=== PATIENT | female | born 1995 | race Caucasian/White ===

== ENCOUNTER 2018-09-08 23:48 | Emergency (ER) | payer SELFPAY ==
[2018-09-09 00:02] VITALS: BP 116/63; PULSE 120; TEMP 99; BMI 29.2
--- NOTE | 2018-09-09 00:02 | PDOC ---
History of Present Illness - General Chief Complaint: Heat Exhaustion Stated Complaint: PAIN & FEVER Time Seen by Provider: 09/09/18 00:01 History Source: Patient Exam Limitations: No Limitations, Language Barrier - History of Present Illness Initial Comments: Samantha Arteaga is a 23 yo F w a pmh of childhood asthma who presents to the [facility] ER via private auto stating she feels really warm and burned after spending the day in the sun. [place] close to sunset. When she woke up this morning she was feeling well and had no complaints. After spending the day on the beach she feels really hot but is cold at the same time. She says she has a fever and chills. Her body feels warm but she is cold. Denies chest pain, SOB, difficulty breathing, runny nose, cough, nausea, vomiting, diarrhea, constipation, dysuria, frequency, or urgency PCP: None PSH: None reported Allergies: Shrimp Social Hx: Denies smoking, drinking, or other substance usage. Past History - Past Medical History Allergies/Adverse Reactions: Allergies Allergy/AdvReac Type Severity Reaction Status Date / Time No Known Allergies Allergy Verified 03/27/14 16:36 Home Medications: Ambulatory Orders Clotrimazole/Betamet Diprop [Lotrisone Cream] 1 tip TP BID #45 cream..g. Diphenhydramine HCl [Benadryl Capsule -] 25 mg PO Q8H #30 capsule 03/27/14 Ibuprofen [Motrin -] 600 mg PO TID #30 tablet 03/27/14 predniSONE [Deltasone -] 40 mg PO DAILY #8 tablet 03/27/14 - Suicide/Smoking/Psychosocial Hx Smoking Status: No Smoking History: Never smoked Have you smoked in the past 12 months: No Number of Cigarettes Smoked Daily: 0 Information on smoking cessation initiated: No Hx Alcohol Use: No Drug/Substance Use Hx: No Substance Use Type: None Review of Systems - Review of Systems Able to Perform ROS?: Yes Comments:: CONSTITUTIONAL: Present: fever, chills, generalized weakness, malaise Absent: diaphoresis, loss of appetite HEENT: Absent: rhinorrhea, nasal congestion, throat pain, throat swelling, difficulty swallowing, mouth swelling, ear pain, eye pain, visual Changes CARDIOVASCULAR: Absent: chest pain, syncope, palpitations, irregular heart rate, lightheadedness , peripheral edema RESPIRATORY: Absent: cough, shortness of breath, dyspnea with exertion, orthopnea, wheezing, stridor, hemoptysis GASTROINTESTINAL: Absent: abdominal pain, abdominal distension, nausea, vomiting, diarrhea, constipation, melena, hematochezia GENITOURINARY: Absent: dysuria, frequency, urgency, hesitancy, hematuria, flank pain, genital pain MUSCULOSKELETAL: Absent: myalgia, arthralgia, joint swelling SKIN: Absent: rash, itching, pallor HEMATOLOGIC/IMMUNOLOGIC: Absent: easy bleeding, easy bruising, lymphadenopathy, frequent infections ENDOCRINE: Absent: unexplained weight gain, unexplained weight loss, heat intolerance, cold intolerance NEUROLOGIC: Present: Headache Absent: focal weakness or paresthesias, dizziness, unsteady gait, seizure, mental status changes, bladder or bowel incontinence PSYCHIATRIC: Absent: anxiety, depression, suicidal or homicidal ideation, hallucinations. *Physical Exam - Vital Signs Last Vital Signs Temp Pulse Resp BP Pulse Ox 99.0 F 120 H 18 116/63 97 09/09/18 00:00 09/09/18 00:00 09/09/18 00:00 09/09/18 00:00 09/09/18 00:00 - Physical Exam Comments: GENERAL: Well developed, well nourished. Awake and alert. Mild distress. HEENT: Normocephalic, atraumatic. PERRLA, EOMI. No conjunctival pallor. Sclera are non- icteric. Moist mucous membranes. Oropharynx is clear. NECK: Supple. Full ROM. No JVD. CARDIOVASCULAR: Tachycardic rate. Regular rhythm. No murmurs, rubs, or gallops. Distal pulses are 2+ and symmetric. PULMONARY: No evidence of respiratory distress. Lungs clear to auscultation bilaterally. No wheezing, rales or rhonchi. ABDOMINAL: Soft. Non-tender. Non-distended. No rebound or guarding. No organomegaly. Normoactive bowel sounds. MUSCULOSKELETAL Normal range of motion at all joints. No bony deformities or tenderness. No CVA tenderness. EXTREMITIES: No cyanosis. No clubbing. No edema. No calf tenderness. SKIN: Hot, red and dry. Normal capillary refill. Heat rash - sunburn. No jaundice. NEUROLOGICAL: Alert, awake, appropriate. Cranial nerves 2-12 intact. No deficits to light touch in face, upper extremities and lower extremities. No motor deficits in the in face, upper extremities and lower extremities. Normal speech. Gait is normal without ataxia. PSYCHIATRIC: Cooperative. Good eye contact. Appropriate mood and affect. ED Treatment Course - LABORATORY CBC & Chemistry Diagram: 09/09/18 00:22 09/09/18 00:22 Medical Decision Making - Medical Decision Making Samantha Arteaga is a 23 yo F w a pmh of childhood asthma who presents to the [facility] ER via private auto stating she feels really warm and burned after spending the day in the sun. The patient [place] the [place] 10 [place] this [place] until close to sunset. When she woke up this morning she was feeling well and had no complaints. After spending the day on the beach she feels really hot but is cold at the same time. She says she has a fever and chills. Her body feels warm but she is cold. Vital Signs Temp Pulse Resp BP Pulse Ox 99.0 F 120 H 18 116/63 97 09/09/18 00:00 09/09/18 00:00 09/09/18 00:00 09/09/18 00:00 09/09/18 00:00 - Tachycardic DDx IBNLT: Heat exhaustion vs heat stroke, dehydration, electrolyte/metabolic disturbance, RADHA, rhabdo, Plan: labs, Urine, Ice pack, IV hydration, re-assess. Labs: No acute abnormalities Urine: Trace ketonuria Re-assessment: Patient feels better after Ice and IV hydration and requests to be discharged. - HR normalized to 87 after 2L iv hydration. Disposition: Home with PCP fu *DC/Admit/Observation/Transfer Diagnosis at time of Disposition: Dehydration Heat exhaustion Qualifiers: Encounter type: initial encounter Qualified Code(s): T67.5XXA - Heat exhaustion , unspecified, initial encounter - Discharge Dispostion Disposition: HOME Condition at time of disposition: Improved Decision to Admit order: No - Referrals Referrals: [facility] [place] [Provider Group] - Patient Instructions Printed Discharge Instructions: DI for Heat Exhaustion and Heat Stroke, DI for Dehydration -- Adult Additional Instructions: You came into the ER after you were dehydrated and experienced heat exhaustion. We looked at your blood and urine and found no abnormalities. We gave you IV hydration which made you feel better. Please do your best to stay indoors during these hot days and drink plenty of fluids. Please make sure to call up the primary care doctor we are referring you to and schedule an appointment in the next 3 to 5 days to make sure you are being taken care of and getting better. Come back to the ER immediately if your pain worsens, you get a fever, start vomiting, or have any other new or worsening concerns. Thank you for coming to the [place] ER. We hope you feel better soon~! Print Language: ARABIC - Post Discharge Activity
[2018-09-09] MEDS ORDERED: SODIUM CHLORIDE 0.9% 500 ML INFUS.BAG IV ONE (00:07)
[2018-09-09] MEDS ORDERED: LACTATED RINGERS SOLUTION 1000 ML INFUS.BAG IV ONE (00:08)
--- NOTE | 2018-09-09 00:40 | PDOC ---
Attending Attestation - Resident Resident Name: Cain Rush - ED Attending Attestation I have performed the following: I have examined & evaluated the patient, The case was reviewed & discussed with the resident, I agree w/resident's findings & plan, Exceptions are as noted - HPI HPI: 09/09/18 00:40 Reviewed Residents HPI - Physicial Exam PE: 09/09/18 00:40 Reviewed Residents PE - Medical Decision Making 09/09/18 00:41 She was outdoors all day long heat appendix greater than 100 today complaining now of subjective fever chills body aches Neck is supple no focal signs of infection on history review of symptoms are physical examination history and examination at this time is most consistent with heat exhaustion Given tachycardia we'll check labs, CK, hydrate, observe and reassess Dr. Phillips to follow up labs reasses and dispo patient
[2018-09-09 00:50] LABS: HEMOGLOBIN 14.1 GM/dL (10.7-15.3); MEAN CELL VOLUME 90.6 fl (80-96); MEAN PLT VOLUME 8.4 fl (7.5-11.1); RDW 13.1 % (11.6-15.6); WHITE BLOOD COUNT 7.4 K/mm3 (4.0-10.0)
[2018-09-09 00:57] LABS: BASO % 0.4 % (0-2.0); EOS % 4.1 % (0-4.5); HEMATOCRIT 41.9 % (32.4-45.2); LYMPH % 25.3 % (8-40); MCH 30.4 pg (25.7-33.7); MCHC 33.5 g/dl (32.0-36.0); MONO % 10.1 % (3.8-10.2); NEUT % 60.1 % (42.8-82.8); PLATELET COUNT 298 K/MM3 (134-434); RBC 4.63 M/mm3 (3.60-5.2)
[2018-09-09 01:19] LABS: ALBUMIN 3.8 g/dl (3.4-5.0); BILIRUBIN,TOTAL 0.4 mg/dL (0.2-1); BLOOD UREA NITROGEN 12.6 mg/dL (7-18); CALCIUM 8.7 mg/dL (8.5-10.1); CREATININE 0.6 mg/dL (0.55-1.3); POTASSIUM 3.9 mmol/L (3.5-5.1); TOT PROT 7.2 g/dl (6.4-8.2)
--- NOTE | 2018-09-09 01:21 | PDOC ---
*Physical Exam - Vital Signs Last Vital Signs Temp Pulse Resp BP Pulse Ox 99.0 F 120 H 18 116/63 97 09/09/18 00:00 09/09/18 00:00 09/09/18 00:00 09/09/18 00:00 09/09/18 00:00 ED Treatment Course - LABORATORY CBC & Chemistry Diagram: 09/09/18 00:22 09/09/18 00:22 - ADDITIONAL ORDERS Additional order review: Laboratory Results 09/09/18 09/09/18 00:22 00:22 Sodium 139 Potassium 3.9 Chloride 108 H Carbon Dioxide 25 Anion Gap 7 L BUN 12.6 Creatinine 0.6 Est GFR (CKD-EPI)AfAm 146.83 Est GFR (CKD-EPI)NonAf 126.68 Random Glucose 94 Calcium 8.7 Total Bilirubin 0.4 AST 26 ALT 38 Alkaline Phosphatase 63 Creatine Kinase 103 Total Protein 7.2 Albumin 3.8 09/09/18 00:22 RBC 4.63 MCV 90.6 MCHC 33.5 RDW 13.1 MPV 8.4 Neutrophils % 60.1 D Lymphocytes % 25.3 D Monocytes % 10.1 Eosinophils % 4.1 D Basophils % 0.4 D - Medications Given in the ED: ED Medications Discontinued Medications Generic Name Dose Route Start Last Admin Trade Name Freq PRN Reason Stop Dose Admin Sodium Chloride 1,000 ml 09/09/18 00:07 09/09/18 00:33 Normal Saline - IV 09/09/18 00:08 1,000 ml ONCE ONE Administration Medical Decision Making - Medical Decision Making 09/09/18 01:20 received pt on signout. CBC normal; CPK normal. She spent the day at the beach and now is nauseous and tachycardic and has a form of heat exhaustion. She looks well now after 1L NSS; 2nd L is running. Once CMP returns and she finishes her boluses of IVF, she can go home. 09/09/18 01:43 Pt has normal Chemistry; her urine has ketones. It is a contaminated specimen that has bacteria, but very few WBC and RBC. 09/09/18 01:44 Pt is stable for discharge home. *DC/Admit/Observation/Transfer Diagnosis at time of Disposition: Dehydration Heat exhaustion Qualifiers: Encounter type: initial encounter Qualified Code(s): T67.5XXA - Heat exhaustion , unspecified, initial encounter - Discharge Dispostion Disposition: HOME Condition at time of disposition: Improved - Referrals Referrals: [facility] [place] [facility] [place] [Provider Group] - Patient Instructions Printed Discharge Instructions: DI for Heat Exhaustion and Heat Stroke, DI for Dehydration -- Adult Additional Instructions: You came into the ER after you were dehydrated and experienced heat exhaustion. We looked at your blood and urine and found no abnormalities. We gave you IV hydration which made you feel better. Please do your best to stay indoors during these hot days and drink plenty of fluids. Please make sure to call up the primary care doctor we are referring you to and schedule an appointment in the next 3 to 5 days to make sure you are being taken care of and getting better. Come back to the ER immediately if your pain worsens, you get a fever, start vomiting, or have any other new or worsening concerns. Thank you for coming to the [facility] ER. We hope you feel better soon~! Print Language: HUNGARIAN - Post Discharge Activity
[2018-09-09 01:40] LABS: EPI CELLS 7.5 /HPF (0-5/HPF); HYALINE CASTS 7 /lpf (0-8); URINE APPEARANCE CLOUDY; URINE BACTERIA 389.9 /hpf (NEGATIVE); URINE BILIRUBIN NEGATIVE (NEGATIVE); URINE COLOR DK YELLOW; URINE GLUCOSE (UA) NEGATIVE (NEGATIVE); URINE KETONE 1+ (NEGATIVE); URINE LEUK ESTERASE TRACE (NEGATIVE); URINE NITRITE NEGATIVE (NEGATIVE); URINE PROTEIN NEGATIVE (NEGATIVE); URINE RBC 4 /hpf (0-4); URINE WBC 3 /hpf (0-5)
== END 2018-09-09 02:32 | disposition home or self-care (01) ==
LOC: JER 23:48
PROC: 3E0337Z Introduction of Electrolytic and Water Balance Substance into Peripheral Vein, Percutaneous Approach (ICD-10-PCS; principal; 2018-09-08)
DX: E86.0 Dehydration (principal); T67.5XXA Heat exhaustion, unspecified, initial encounter; Y92.9 Unspecified place or not applicable
CPT/HCPCS: 36415; 80053; 81003; 82550; 84703; 85025; 87086; 99282-25